=== PATIENT | female | born 1970 | race Caucasian/White ===

== ENCOUNTER 2017-02-01 22:37 | Emergency (ER) | payer OTHER ==
[2017-02-01 23:06] LABS: BASOPHIL 0.3 % (0-2); EOSINOPHIL 3.7 % (0-5); HCT 39.9 % (37.0-47.0); HGB 13.6 g/dl (12.5-16.0); LYMPHOCYTE 47.4 % (15-48); MCH 29.4 pg (25.0-31.0); MCHC 34.1 g/dL (32.0-36.0); MCV 86.4 fL (78.0-100.0); MONOCYTE 6.7 % (0-12); MPV 8.6 fL (6.0-9.5); NEUTROPHIL 41.9 % (41-80); PLT 428 K/uL (150-400); RBC 4.62 M/uL (4.20-5.40); RDW 13.1 % (11.5-14.0); WBC 13.1 K/uL (4.0-10.5)
[2017-02-01 23:17] LABS: INR 0.93 (0.9-1.2); PROTHROMBIN TIME 12.1 SECONDS (11.7-14.0)
[2017-02-01 23:18] LABS: PTT 29.5 SECONDS (23.2-31.4)
[2017-02-01 23:31] LABS: ALBUMIN 4.7 g/dL (3.5-5.0); BILIRUBIN - TOTAL 0.3 mg/dL (0.1-1.0); CREATININE 0.7 mg/dL (0.5-1.0); GLOBULIN (CALCULATION) 2.9 g/dL (2.2-4.2); MAGNESIUM 1.87 mg/dL (1.40-2.10); MYOGLOBIN 21 ng/mL (26-65); POTASSIUM 3.4 mmol/L (3.5-5.1); PRO-BNP 27 pg/mL (0-125); TOTAL PROTEIN 7.6 g/dL (6.4-8.3); TROPONIN T < 0.010 ng/mL
== END 2017-02-02 01:47 | disposition home or self-care (01) ==
LOC: FER 22:37
PROVIDERS: Emergency Medicine Emergency Medical Services
DX: R07.89 Other chest pain (principal); R06.02 Shortness of breath; E11.9 Type 2 diabetes mellitus without complications; E78.5 Hyperlipidemia, unspecified; E07.9 Disorder of thyroid, unspecified; Z82.49 Family history of ischemic heart disease and other diseases of the circulatory system
CPT/HCPCS: 36415; 71010; 80053; 82550; 82553; 83690; 83735; 83874; 83880; 84484; 85025; 85610; 85730; 93005